=== PATIENT | female | born 1990 | race African-American/Black ===

== ENCOUNTER 2018-05-06 20:13 | Emergency (ER) | payer OTHER ==
[~2018-05-06] VITALS: Ht 162.6 cm; Wt 99.8 kg
[~2018-05-06 20:13] MED LIST: TRINATE TABLET1 TAB
[2018-05-06 21:26] VITALS: BP 146/74
== END 2018-05-06 21:28 | disposition home or self-care (01) ==
LOC: M.ERS 20:13
DX: J02.9 Acute pharyngitis, unspecified (principal)

== ENCOUNTER 2018-09-30 09:16 | Emergency (ER) | payer BC ==
[~2018-09-30] VITALS: Ht 162.6 cm; Wt 108.4 kg
[2018-09-30] MEDS ORDERED: PREDNISONE50 MG PO (11:47)
[2018-09-30 12:02] VITALS: BP 99/77
== END 2018-09-30 12:03 | disposition home or self-care (01) ==
LOC: M.ERS 09:16
DX: B27.90 Infectious mononucleosis, unspecified without complication (principal); Z98.890 Other specified postprocedural states

== ENCOUNTER 2020-08-19 21:33 | Emergency (ER) | payer OTHER ==
[~2020-08-19] VITALS: Ht 160 cm; Wt 90.7 kg
[~2020-08-19 21:33] MED LIST changes: +PREDNISONE50 MG PO
[2020-08-19] MEDS ORDERED: HYDROCODON-ACE1 EAC8 PO (23:10)
[2020-08-20 00:17] VITALS: BP 127/75
== END 2020-08-20 00:17 | disposition home or self-care (01) ==
LOC: M.ERS 21:33
DX: S93.492A Sprain of other ligament of left ankle, initial encounter (principal); Z98.890 Other specified postprocedural states; X50.1XXA Overexertion from prolonged static or awkward postures, initial encounter; Y93.89 Activity, other specified; Y92.89 Other specified places as the place of occurrence of the external cause; Y99.8 Other external cause status

== ENCOUNTER 2020-12-22 16:59 | Emergency (ER) | payer OTHER ==
[~2020-12-22] VITALS: Ht 162.6 cm; Wt 99.8 kg
[~2020-12-22 16:59] MED LIST changes: +HYDROCODON-ACE1 EAC8 PO
[2020-12-22 17:23] LABS: URINE BILIRUBIN NEGATIVE (Negative); URINE BLOOD NEGATIVE (Negative); URINE CLARITY CLEAR; URINE COLOR YELLOW; URINE GLUCOSE-RANDOM NEGATIVE (Negative); URINE KETONES TRACE (Negative); URINE LEUKOCYTES-REFLEX NEGATIVE (Negative); URINE NITRITE-REFLEX NEGATIVE (Negative); URINE PROTEIN NEGATIVE (Negative); URINE SPECIFIC GRAVITY 1.025 (1.005-1.030)
[2020-12-22 17:49] LABS: ABSOLUTE EOSINOPHILS 0.2 thou/uL (0.0-0.7); ABSOLUTE LYMPHOCYTES 1.3 thou/uL (0.8-5.3); ABSOLUTE MONOCYTES 0.7 thou/uL (0.0-1.2); ABSOLUTE NEUTROPHILS 7.9 thou/uL (1.6-8.1); BASOPHILS 0.4 %; EOSINOPHILS 2.4 %; HEMATOCRIT 38.8 % (37.0-47.0); HEMOGLOBIN 13.3 gm/dL (12.0-15.0); LYMPHOCYTES 12.9 %; MCH 29.7 pg (26.0-34.0); MCHC 34.3 g/dL (28.0-37.0); MCV 86.7 fL (80.0-100.0); MONOCYTES 7.1 %; MPV 7.2 fl. (7.2-11.1); NUCLEATED RBCS 0 /100WBC; PLATELET COUNT* 247 thou/uL (150-400); POLYS 77.2 %; RBC 4.47 mil/uL (4.20-5.00); RDW-CV 14.9 % (10.5-14.5); WBC 10.2 thou/uL (4.0-11.0)
[2020-12-22 17:57] LABS: CALCIUM 8.2 mg/dL (8.5-10.1); CREATININE 0.7 mg/dL (0.6-1.3); POTASSIUM 3.9 mmol/L (3.5-5.1)
[2020-12-22 18:01] LABS: ALBUMIN 3.2 g/dL (3.4-5.0); TOTAL BILIRUBIN 0.2 mg/dL (<0.1-1.0); TOTAL PROTEIN 7.4 g/dL (6.4-8.2)
[2020-12-22 19:50] VITALS: BP 121/70
== END 2020-12-22 19:51 | disposition home or self-care (01) ==
LOC: M.ERS 16:59
PROVIDERS: Physician Assistant
DX: O20.0 Threatened abortion (principal)